=== PATIENT | male | born 1980 | race African-American/Black ===

== ENCOUNTER → 2018-12-15 | Outpatient (CLI) | payer BC ==
[~2018-12-15] MED LIST: DOXYCYCLINE 10100 MG PO; METFORMIN HCL1000 MG PO; NAPROSYN500 MG PO; NORCO 5-325 TA1 EACH PO; SIMVASTATIN40 MG PO; TRAMADOL 50 MG50 MG PO; ZPAK PO
== END ==
LOC: RAD 14:17
DX: M79.671 Pain in right foot (principal)

== ENCOUNTER 2020-03-17 14:03 | Emergency (ER) | payer BC ==
[~2020-03-17] VITALS: Ht 170.2 cm; Wt 65.8 kg
[2020-03-17 14:36] LABS: ABSOLUTE NEUTROPHILS 14.3 thou/uL (1.4-8.2); BASOPHILS 0.6 % (0.0-2.0); HEMATOCRIT 44.5 % (42.0-52.0); HEMOGLOBIN 14.8 gm/dL (14.0-18.0); LYMPHOCYTES 8.7 % (24.0-44.0); MCH 29.4 pg (26.0-34.0); MCHC 33.2 g/dL (28.0-37.0); MCV 88.5 fL (80.0-100.0); MONOCYTES 3.6 % (1.0-8.0); PLATELET COUNT 303 thou/uL (150-400); POLYS 87.1 % (36.0-66.0); RBC 5.03 mil/uL (4.50-6.00); RDW 13.6 % (10.5-14.5); WBC 16.4 thou/uL (4.0-11.0)
[2020-03-17 14:41] LABS: CALCIUM 9.5 mg/dL (8.5-10.1); CREATININE 0.9 mg/dL (0.7-1.3); POTASSIUM 4.4 mmol/L (3.5-5.1)
[2020-03-17 14:47] LABS: ALBUMIN 4.5 g/dL (3.4-5.0); TOTAL BILIRUBIN 1.2 mg/dL (0.2-1.0); TOTAL PROTEIN 8.3 g/dL (6.4-8.2)
[2020-03-17] MEDS ORDERED: ZOFRAN ODT4 MG DISSOLVE (16:23)
[2020-03-17] MEDS ORDERED: PEPCID20 MG PO (16:23)
[2020-03-17 17:03] VITALS: BP 133/64
== END 2020-03-17 17:02 | disposition home or self-care (01) ==
LOC: ER 14:03
PROVIDERS: Physician Assistant
DX: R11.2 Nausea with vomiting, unspecified (principal); F10.10 Alcohol abuse, uncomplicated; D72.829 Elevated white blood cell count, unspecified; E11.9 Type 2 diabetes mellitus without complications; F17.210 Nicotine dependence, cigarettes, uncomplicated; Y90.0 Blood alcohol level of less than 20 mg/100 ml

== ENCOUNTER 2020-05-22 09:35 | Emergency (ER) | payer BC ==
[~2020-05-22] VITALS: Ht 170.2 cm; Wt 73.0 kg
[~2020-05-22 09:35] MED LIST changes: +PEPCID20 MG PO; +ZOFRAN ODT4 MG DISSOLVE
[2020-05-22] MEDS ORDERED: CYCLOBENZAPRINE10 MG PO (12:14)
[2020-05-22 12:25] VITALS: BP 112/71
== END 2020-05-22 12:27 | disposition home or self-care (01) ==
LOC: ER 09:35
DX: S33.5XXA Sprain of ligaments of lumbar spine, initial encounter (principal); E11.9 Type 2 diabetes mellitus without complications; F17.210 Nicotine dependence, cigarettes, uncomplicated; V49.9XXA Car occupant (driver) (passenger) injured in unspecified traffic accident, initial encounter; Y93.89 Activity, other specified; Y92.89 Other specified places as the place of occurrence of the external cause; Y99.8 Other external cause status

== ENCOUNTER 2021-07-13 11:36 | Emergency (ER) | payer BC ==
[~2021-07-13] VITALS: Ht 170.2 cm; Wt 63.5 kg
[~2021-07-13 11:36] MED LIST changes: +CYCLOBENZAPRINE10 MG PO
[2021-07-13 11:38] VITALS: BP 117/65
== END 2021-07-13 12:20 | disposition home or self-care (01) ==
LOC: ER 11:36
PROVIDERS: Physician Assistant
DX: U07.1 COVID-19 (principal); R53.83 Other fatigue; E11.9 Type 2 diabetes mellitus without complications; F17.210 Nicotine dependence, cigarettes, uncomplicated